=== PATIENT | male | born 1985 | race Caucasian/White ===

== ENCOUNTER → 2018-04-03 | Outpatient (CLI) | payer OTHER ==
[~2018-04-03] MED LIST: IOPAMIDOL 76% 100 ML INFUS BTL 100 ML ONE
--- NOTE | 2018-04-03 13:39 | RADIOLOGY IMAGING REPORT ---
FACILITY: [facility] [place] PATIENT NAME: Dontae Jean-Baptiste : 1985 MR: [id number] V: [id number] EXAM DATE: ORDERING PHYSICIAN: SCOOBY ENCARNACION TECHNOLOGIST: Location: [facility] Patient: Dontae Jean-Baptiste : 1985 Visit/Account:[id number] Date of Sevice: 04/03/2018 ABDOMEN/PELVIS WITH CONTRAST HISTORY: Epigastric and left upper quadrant pain TECHNIQUE: Following administration of IV contrast contiguous axial images acquired through the abdom en/pelvis. Coronal and sagittal reformatting also performed. Dose Lowering Technique One of the following dose optimization techniques was utilized in the performance of this exam: Autom ated exposure control; adjustment of the mA and/or kV according to the patient's size; or use of an i terative reconstruction technique. Specific details can be referenced in the facility's radiology C T exam operational policy. CONTRAST: 85 mL Isovue-370 COMPARISON: None. FINDINGS: Visualized lung bases: Negative. Hepatobiliary: Tiny round hypodensity right lobe the liver likely a cyst although too small to connie cterize Spleen: Negative. Adrenals: Negative. Pancreas: Negative. Kidneys ureters or bladder: Negative. Genitalia: Negative. GI: No evidence of bowel obstruction or bowel wall thickening. The appendix is visualized and does not appear inflamed Vessels/spaces/nodes: Negative. Bones/soft tissues: Negative. Additional findings: None pertinent. IMPRESSION: Unremarkable CT of abdomen and pelvis of them probable tiny cyst in the right lobe the liver. Report Dictated By: Mare Duran MD at 04/03/2018 1:31 PM Report E-Signed By: Mare Duran MD at 04/03/2018 1:36 PM WSN:[email or web address]
== END ==
LOC: EDSEX 12:05 → CT 12:05
PROVIDERS: ATTEND Family Medicine
DX: R10.816 Epigastric abdominal tenderness (principal); R10.12 Left upper quadrant pain
CPT/HCPCS: 74177; Q9967